=== PATIENT | male | born 1935 | race Caucasian/White ===

== ENCOUNTER → 2016-04-25 | Outpatient (CLI) | payer MEDICARE ==
[~2016-04-25] MED LIST: /WARF25TA; /WARF2TA PO; ACET65TA; ALBU17IN INH; ATEN50TA2 PO; CARD120T6 PO; COUM2TAB10 PO; DIGO0.25 PO; DOXY100C PO; FURO40TA2 PO; MELO15TA3 PO; MOBI15TA PO; PERC5TAB8; PERC7.5T8; PRED20TAB PO; ROCE1INJ4 IV; SPIR25TA2 PO; TYLE650T25 PO; TYLE650T30 PO; VITA100037 PO; VITA100041 PO; VITA500T3 PO; VITAMIN B 12 PO; ZYVO100T PO
--- NOTE | 2016-04-25 10:57 | REP ---
CHEST, TWO VIEWS: HISTORY: Pneumoconiosis. COMPARISON: 07/12/2015. There is elevation of the right hemidiaphragm. A diffuse increase in interstitial markings is present in the lungs consistent with chronic interstitial fibrosis. Calcified pleural plaques are present. The cardiac silhouette is enlarged. The pulmonary vasculature is normal in appearance. Degenerative change is present in the thoracic spine. IMPRESSION: 1. 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 2. Cardiomegaly. Signed by Jesus Chacon MD 04/25/2016 11:10 A
== END ==
LOC: M SMT 10:09
PROVIDERS: ATTEND Internal Medicine Pulmonary Disease
DX: J61 Pneumoconiosis due to asbestos and other mineral fibers (principal)

== ENCOUNTER → 2016-05-02 | Outpatient (REF) | payer MEDICARE | LOC: M LAB REF 16:23 | PROVIDERS: ATTEND Internal Medicine | DX: I50.32 Chronic diastolic (congestive) heart failure (principal); N18.3 Chronic kidney disease, stage 3 (moderate) ==

== ENCOUNTER → 2016-06-25 | Outpatient (REF) | payer MEDICARE | LOC: M LAB REF 14:15 | PROVIDERS: ATTEND Podiatrist | DX: L03.115 Cellulitis of right lower limb (principal); I73.9 Peripheral vascular disease, unspecified; Z79.899 Other long term (current) drug therapy ==

== ENCOUNTER → 2016-07-29 | Outpatient (REF) | payer MEDICARE | LOC: M LAB REF 12:03 | PROVIDERS: ATTEND Physician Assistant Medical | DX: J02.9 Acute pharyngitis, unspecified (principal) ==

== ENCOUNTER → 2016-09-03 | Outpatient (REF) | payer MEDICARE | LOC: M LAB REF 16:51 | PROVIDERS: ATTEND Internal Medicine | DX: I48.2 Chronic atrial fibrillation (principal) ==

== ENCOUNTER → 2016-12-25 | Outpatient (REF) | payer MEDICARE ==
[~2016-12-25] MED LIST changes: -COUM2TAB10 PO; +COUM2TAB22 PO; +VITA-182 PO; -VITA100041 PO
== END ==
LOC: M LAB REF 13:41
PROVIDERS: ATTEND Internal Medicine
DX: Z51.81 Encounter for therapeutic drug level monitoring (principal); Z79.899 Other long term (current) drug therapy; I48.2 Chronic atrial fibrillation

== ENCOUNTER → 2016-12-27 | Outpatient (CLI) | payer MEDICARE ==
[~2016-12-27] MED LIST changes: +EPINEPHrine INJ 1 MG/ML 1ML AMP As Ordered ONE; +SODIUM BICARBONATE 8.4% INJ 50 ML SYRINGE As Ordered ONE
--- NOTE | 2016-12-27 11:30 | REP ---
Lumbar spine five views: There are no comparisons. There is scoliosis convex left centered at the L3-4 level. There is diffuse demineralization. There is grade 3 compression deformity of the L1 vertebral body. The remainder of the vertebral body heights are normal. There is advanced degenerative disc disease at every lumbar level. There is no spondylolysis or spondylolisthesis. There is osteoarthritis in the posterior facets. The pedicles and sacroiliac articulations are unremarkable. Impression: Multilevel advanced degenerative disc disease. Grade 3 compression of the L1 vertebral body. Facet osteoarthritis. Signed by Gary Quan MD 12/27/2016 11:22 A
== END ==
LOC: M ADAMS 10:40
PROVIDERS: ATTEND Internal Medicine
DX: M81.0 Age-related osteoporosis without current pathological fracture (principal); M51.35 Other intervertebral disc degeneration, thoracolumbar region; M51.36 Other intervertebral disc degeneration, lumbar region; M51.37 Other intervertebral disc degeneration, lumbosacral region; M41.9 Scoliosis, unspecified

== ENCOUNTER → 2017-02-20 | Outpatient (CLI) | payer MEDICARE ==
[~2017-02-20] MED LIST changes: -EPINEPHrine INJ 1 MG/ML 1ML AMP As Ordered ONE; -SODIUM BICARBONATE 8.4% INJ 50 ML SYRINGE As Ordered ONE
--- NOTE | 2017-02-20 10:36 | REP ---
MRI lumbar spine without contrast: History: Spinal stenosis. Comparison radiographs of the lumbar spine are from December 27, 2016. This study is read as showing an L-1 compression deformity however I believe this is actually T12. This compression deformity is new when compared with the images from CT abdomen July 17, 2015. Technique: Sagittal and axial T1 and T2-weighted scans are acquired in the usual fashion with and without fat saturation. Sequences include spin echo, turbo spin-echo, and STIR imaging sequences. MRI findings: As seen on the radiographs, there is partial wedge-shaped collapse of the T12 vertebral body with approximately 50% loss of anterior vertebral body height. There is mild retropulsion and the anterior and lateral cortices protrude as well as in a burst type fracture. However, no fracture is seen in the pedicles or posterior elements on either side. There is approximately 4 mm of retropulsion of the caudal aspect of the posterior cortex of T12. This and associated disc bulging efface the ventral subarachnoid space and subtly displace the conus dorsally. There is ligamentum flavum and facet hypertrophy bilaterally at T12-L1 and mild central canal stenosis is present at T12-L1. There is a left-sided disc protrusion at T12-L1 with a cranially extruded and possibly sequestered fragment which effaces the left ventral lateral thecal sac at the level of the pedicle at T12. This possibly sequestered or extruded fragment is 10 mm in anteroposterior by 6 mm in transverse dimension by approximately 11 mm craniocaudal. Foraminal disc bulging and facet hypertrophy produce marked left T12-L1 neural foraminal narrowing. There is mild right T12-L1 neural foraminal narrowing. The signal intensity in the collapsed T12 vertebral body shows a low T1 low T2 linear cleft horizontally distributed through the vertebral body with low T1 high T2 linear fluid along it. 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 CT scanning is recommended for further evaluation. There is diffuse degenerative spondylosis throughout the remainder of the lumbar spine with degenerative disc disease at each level and discogenic spurring and diffuse disc bulging at each level. There is mild central canal stenosis at L1-2. Mild to moderate central canal stenosis is noted and L2-3 due to diffuse disc bulging ligamentum flavum and facet hypertrophy. At L3-4 there is mild central canal stenosis due to these same factors. There is mild right-sided neural foraminal narrowing at L3-4. At L4-5, there is moderate central canal stenosis. Moderate facet and ligamentum flavum hypertrophy contribute to this along with diffuse disc bulging. There is a 3 mm grade 1 degenerative L4-5 spondylolisthesis. Minimal neural foraminal narrowing is seen bilaterally at 4-5. At L5-1 there is mild diffuse disc bulging which effaces the left ventral lateral margin of the thecal sac. Facet hypertrophy is noted as well. Mild bilateral neural foraminal narrowing is seen. Impression: 1. Multilevel central canal stenosis due to diffuse degenerative disc disease and spondylosis. The central canal stenosis is most pronounced at L4-5 and L2-3. 2. Also noted is a complex collapse of the T12 vertebral body with retropulsion as well as disc protrusion and extrusion producing thecal sac compression and moderate central canal stenosis. Left-sided disc extrusion possible sequestration. Question avascular necrosis of the T12 vertebral body. Recommend CT study of the thoracolumbar junction. Signed by Shaheed Phillips MD 02/20/2017 04:14 P
== END ==
LOC: M PLARAD 08:01
PROVIDERS: ATTEND Physician Assistant
DX: M48.061 Spinal stenosis, lumbar region without neurogenic claudication (principal)

== ENCOUNTER → 2017-04-20 | Outpatient (CLI) | payer MEDICARE | LOC: M ADAMS 10:44 | DX: J61 Pneumoconiosis due to asbestos and other mineral fibers (principal); J98.6 Disorders of diaphragm; J92.9 Pleural plaque without asbestos | CPT/HCPCS: 71046 ==

== ENCOUNTER → 2017-04-27 | Outpatient (REF) | payer MEDICARE ==
[2017-04-27 19:18] LABS: DIGOXIN LEVEL 1.7 NG/ML (0.5-2.0)
[2017-04-27 19:18] LABS: URIC ACID 6.9 MG/DL (3.5-7.2)
== END ==
LOC: M LAB REF 18:33
DX: I48.2 Chronic atrial fibrillation (principal); M10.071 Idiopathic gout, right ankle and foot
CPT/HCPCS: 80162

== ENCOUNTER → 2017-10-26 | Outpatient (REF) | payer MEDICARE | LOC: M LAB REF 18:39 | DX: I48.2 Chronic atrial fibrillation (principal) | CPT/HCPCS: 80162 ==

== ENCOUNTER → 2018-04-22 | Outpatient (CLI) | payer MEDICARE ==
[~2018-04-22] MED LIST changes: -ROCE1INJ4 IV; +ROCE1INJ6 IV; +SPIR-10 PO; -SPIR25TA2 PO; -ZYVO100T PO; +ZYVO1TAB PO
--- NOTE | 2018-04-22 12:34 | REP ---
Chest two views HISTORY: Pneumoconiosis Comparison: 04/20/2017 There is elevation of the right hemidiaphragm. There are bilateral calcified pleural plaques. The cardiac silhouette is enlarged. The heart is normal in size. The pulmonary vasculature is normal in appearance. There is an old compression fracture of a lower thoracic vertebral body. IMPRESSION: 1. No acute disease. There are bilateral calcified pleural plaques. 2. Cardiomegaly. Electronically Signed by Jesus Chacon MD 04/22/2018 12:25 P
== END ==
LOC: M ADAMS 11:13
PROVIDERS: ATTEND Internal Medicine Pulmonary Disease
DX: I51.7 Cardiomegaly (principal); J92.9 Pleural plaque without asbestos

== ENCOUNTER → 2018-04-30 | Outpatient (REF) | payer MEDICARE | LOC: M LAB REF 12:44 | PROVIDERS: ATTEND Internal Medicine | DX: I48.2 Chronic atrial fibrillation (principal); Z79.01 Long term (current) use of anticoagulants ==

== ENCOUNTER → 2018-11-02 | Outpatient (REF) | payer MEDICARE ==
[~2018-11-02] MED LIST changes: -/WARF25TA; -/WARF2TA PO; +COUM1TAB16 PO; +COUM1TAB18; +CYAN500T8 PO; -VITA500T3 PO
[2018-11-02 17:50] LABS: INR 1.37; PROTHROMBIN TIME 16.6 SECONDS (11.8-14.0)
== END ==
LOC: M LAB REF 16:54
PROVIDERS: ATTEND Internal Medicine
DX: I48.2 Chronic atrial fibrillation (principal)

== ENCOUNTER → 2019-04-04 | Outpatient (REF) | payer MEDICARE | LOC: M LAB REF 13:49 | PROVIDERS: ATTEND Internal Medicine | DX: I13.0 Hypertensive heart and chronic kidney disease with heart failure and stage 1 through stage 4 chronic kidney disease, or unspecified chronic kidney disease (principal) ==

== ENCOUNTER → 2019-05-20 | Outpatient (CLI) | payer MEDICARE ==
--- NOTE | 2019-05-20 09:53 | REP ---
PA and lateral chest: Comparisons are the PA and lateral chest studies of 04/25 2016 and 04/24/2016 as well as a chest CT dated 04/17/2009. There are extensive bilateral calcific pleural plaques, unchanged. There is chronic elevation of the right hemidiaphragm, unchanged. There are three new small nodular densities in the left upper lobe, not present on the comparison PA and lateral views of the chest. On the comparison CT there is a calcific pleural plaquing in this approximate location of the old. Therefore, these densities may represent calcific pleural plaque, however, they are not visible on the comparison plain film studies. Therefore, follow-up chest CT might be considered for more assurance. No other new nodules or masses are acute infiltrates or pleural effusions. There are surgical clips in the right hilar area. The patient reportedly has had a right lobectomy. Cardiac size is slightly enlarged, unchanged. The vickie, mediastinum, skeletal structures are otherwise are. Unremarkable. Impression: There are three new small nodular densities in the left upper lobe as a change from prior studies. These may represent calcific pleural plaques, however were not present on the comparison PA and lateral plain film studies. Therefore, follow-up CT might be considered for more assurance. There is elevation of the right hemidiaphragm and surgical clips in the right hilus consistent with the history of right lobectomy. There are multiple calcific pleural plaques, not significantly changed. There is mild cardiomegaly, unchanged. Electronically Signed by Gary Quan MD 05/20/2019 09:44 A
== END ==
LOC: M ADAMS 08:44
PROVIDERS: ATTEND Internal Medicine Pulmonary Disease
DX: R91.8 Other nonspecific abnormal finding of lung field (principal); J61 Pneumoconiosis due to asbestos and other mineral fibers; Z90.2 Acquired absence of lung [part of]

== ENCOUNTER → 2019-11-28 | Outpatient (CLI) | payer MEDICARE ==
--- NOTE | 2019-12-09 13:39 | REP ---
CHEST X-RAY: 2-VIEWS HISTORY: Pneumoconiosis due to asbestos and other mineral fibers. COMPARISON: 05/20/2019. FINDINGS: There is extensive bilateral calcific pleural plaquing again noted. Some pleural thickening is again noted visualized posteriorly. No carline pleural effusion is evident. Right hemidiaphragm is elevated. There is no evidence of diffuse interstitial pulmonary parenchymal fibrosis. Moderate cardiac enlargement is observed. Cardiothoracic ratio is 60.1%. The thoracic aorta is tortuous and some calcific. There are advanced degenerative changes in the shoulders. There is marked anterior wedging and collapse at one of the lower thoracic vertebral bodies, probably T12. This is unchanged as well. IMPRESSION: Extensive calcific pleural plaquing. Elevated right hemidiaphragm. Cardiomegaly. Old collapse at what appears to be the T12 vertebral body. MTDD
== END ==
LOC: M ADAMS 11:03
PROVIDERS: ATTEND Internal Medicine Pulmonary Disease
DX: J61 Pneumoconiosis due to asbestos and other mineral fibers (principal)

== ENCOUNTER → 2019-12-14 | Outpatient (REF) | payer MEDICARE ==
[2019-12-14 18:18] LABS: DIGOXIN LEVEL 1.2 NG/ML (0.5-2.0); URIC ACID 6.8 MG/DL (3.5-7.2)
== END ==
LOC: M LAB REF 17:13
PROVIDERS: ATTEND Internal Medicine
DX: I48.20 Chronic atrial fibrillation, unspecified (principal); M10.071 Idiopathic gout, right ankle and foot

== ENCOUNTER → 2020-06-13 | Outpatient (REF) | payer MEDICARE ==
[~2020-06-13] MED LIST changes: +CYAN500T14 PO; -CYAN500T8 PO
== END ==
LOC: M LAB REF 16:25
PROVIDERS: ATTEND Internal Medicine
DX: I50.32 Chronic diastolic (congestive) heart failure (principal)